=== PATIENT | male | born 1990 | race American Indian/Alaskan Native ===

== ENCOUNTER 2019-06-15 16:37 | Emergency (ER) | payer SELFPAY ==
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
[2019-06-15] MEDS ORDERED: NORCO 5/325 PO ONE (18:41)
[2019-06-15] MEDS ORDERED: FLEXERIL PO ONE (18:41)
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
[2019-06-15 20:17] VITALS: BP 122/71
== END 2019-06-15 20:17 | disposition home or self-care (01) ==
LOC: ED 16:37
DX: S80.11XA Contusion of right lower leg, initial encounter (principal); Z87.891 Personal history of nicotine dependence; X58.XXXA Exposure to other specified factors, initial encounter; Y93.89 Activity, other specified; Y92.89 Other specified places as the place of occurrence of the external cause; Y99.8 Other external cause status